=== PATIENT | female | born 2000 | race Caucasian/White ===

== ENCOUNTER 2023-03-13 09:35 | Outpatient (CLI) | payer MEDICAID ==
[2023-03-13] VITALS (18 sets, daily range): BP systolic 74–133; BP diastolic 38–75; PULSE 63–96
== END 2023-03-13 23:59 | disposition home or self-care (01) ==
LOC: CARD DIAG 09:35
PROVIDERS: ATTEND Physician Assistant Medical
DX: R55 Syncope and collapse (principal)
CPT/HCPCS: 93660

== ENCOUNTER 2024-10-06 00:56 | Emergency (ER) | payer OTHER, MEDICAID ==
[~2024-10-06] VITALS: Ht 165.1 cm; Wt 114.0 kg
[2024-10-06] MEDS: acetaminophen 325mg tablet PO ONE (03:45)
[2024-10-06] MEDS: LEVONORGESTREL 1.5MG tablet 1.5 MG TABLET PO ONE (04:15)
[2024-10-06] MEDS: TINIDAZOLE 500 MG TABLET PO ONE (04:15)
[2024-10-06] MEDS: azithromycin 250mg tablet PO ONE (04:16)
[2024-10-06] MEDS: CefTRIAXone 500MG IM Kit w/LIDOcaine IM ONE (04:16)
[2024-10-06] MEDS: ondansetron 4mg rapidly disintigrating tab PO ONE (04:59)
[2024-10-06 05:52] VITALS: BP 136/82; PULSE 103; RESP 16; TEMP 98.3; O2SAT 98
[2024-10-07] MEDS ORDERED: IBUP-1986 PO (19:12)
== END 2024-10-06 05:56 | disposition home or self-care (01) ==
LOC: EEVIPCON 00:59 → ER 00:59
DX: T74.21XA Adult sexual abuse, confirmed, initial encounter (principal); Z88.0 Allergy status to penicillin; X58.XXXA Exposure to other specified factors, initial encounter; Y93.89 Activity, other specified; Y92.89 Other specified places as the place of occurrence of the external cause; Y99.8 Other external cause status
CPT/HCPCS: 96372; 99284; J0696

== ENCOUNTER 2024-10-07 18:19 | Emergency (ER) | payer MEDICAID, OTHER ==
[~2024-10-07] VITALS: Ht 165.1 cm; Wt 114.8 kg
[2024-10-07 18:24] VITALS: BP 125/83; TEMP 98.3
[2024-10-07] MEDS ORDERED: IBUP-1986 PO (19:12)
[2024-10-07 19:20] VITALS: PULSE 71; RESP 18; O2SAT 100
== END 2024-10-07 19:24 | disposition home or self-care (01) ==
LOC: ER 18:20
DX: R07.89 Other chest pain (principal); M54.2 Cervicalgia; Z88.1 Allergy status to other antibiotic agents
CPT/HCPCS: 99282